=== PATIENT | male | born 1940 | race Hispanic/Latino ===

== ENCOUNTER 2018-09-05 11:23 | Emergency (ER) | payer SELFPAY ==
[2018-09-05 11:30] VITALS: RESP 18
[2018-09-05 11:31] VITALS: BMI 27.6
[2018-09-05] MEDS ORDERED: Lidocaine 5% Patch TD STA (12:14)
--- NOTE | 2018-09-05 12:31 | ED PDOC ---
HPI: General Adult Time Seen by Provider: 09/05/18 11:34 Chief Complaint (Nursing): Upper Extremity Problem/Injury Chief Complaint (Provider): Neck pain History Per: Patient, Family History/Exam Limitations: no limitations Additional Complaint(s): Pt c/o R arm pain X 2 days that now radiates up to R side of neck, worse with movement of R arm, has been taking Tylenol at home with good relief. Was working in garden day before symptoms started. Woke up this AM with more pain. Was evaluated at [facility], EKG showed "irregularly irregular" rhythm and was told he was bradycardic. Pt denies CP, SOB, palpitations. States he has always had an irregular rhythm. Past Medical History Reviewed: Nursing Documentation, Vital Signs Vital Signs: Last Vital Signs Temp 97.5 F L 09/05/18 11:30 Pulse 69 09/05/18 11:30 Resp 18 09/05/18 11:30 BP 148/83 09/05/18 11:30 Pulse Ox 97 09/05/18 11:30 Primary Care Provider: Non [facility] Provider, - Medical History PMH: CAD, Dementia (possible), Hyperlipidemia - Surgical History Surgical History: Coronary Stent - Family History Family History: States: Unknown Family Hx - Living Arrangements Living Arrangements: With Family - Social History Current smoker - smoking cessation education provided: No Alcohol: None - Home Medications Home Medications: Ambulatory Orders Medication Instructions Recorded Lidocaine 5% [Lidoderm] 1 ea TD DAILY PRN #10 patch 09/05/18 - Allergies Allergies/Adverse Reactions: Allergies Allergy/AdvReac Type Severity Reaction Status Date / Time oxycodone [From Percocet] AdvReac Intermediate NAUSEA Verified 09/05/18 11:48 Review of Systems Constitutional: Negative for: Fever, Chills Eyes: Negative for: Vision Change Cardiovascular: Negative for: Chest Pain Respiratory: Negative for: Cough, Shortness of Breath Gastrointestinal: Negative for: Abdominal Pain Musculoskeletal: Positive for: Neck Pain, Arm Pain. Negative for: Shoulder Pain Skin: Negative for: Rash, Lesions Neurological: Negative for: Headache, Dizziness Physical Exam - Reviewed Nursing Documentation Reviewed: Yes Vital Signs Reviewed: Yes - Physical Exam Appears: Positive for: Well, No Acute Distress Head Exam: Positive for: ATRAUMATIC, NORMAL INSPECTION Skin: Positive for: Normal Color, Warm, Dry Eye Exam: Positive for: Normal appearance, EOMI, PERRL Neck: Positive for: Normal, Supple, Pain On Movement Of Neck (R neck). Negative for: Painless ROM, Decreased ROM, Limited ROM Cardiovascular/Chest: Positive for: Irregularly Irregular. Negative for: Bradycardia Respiratory: Positive for: Normal Breath Sounds Gastrointestinal/Abdominal: Positive for: Normal Exam Extremity: Positive for: Other (Decreased ROM R shoulder secondary to pain). Negative for: Normal ROM, Tenderness, Deformity, Swelling Neurological/Psych: Positive for: Awake, Alert, Oriented, increment manager II-XII. Negative for: Facial Droop - Laboratory Results Result Diagrams: 09/05/18 12:20 09/05/18 12:20 - ECG Interpretation Of ECG: SR @ 85, bigeminy. O2 Sat by Pulse Oximetry: 97 Pulse Ox Interpretation: Normal - Radiology X-Ray: Interpreted by Ia X-Ray Interpretation: No Acute Disease Medical Decision Making Medical Decision Makin yo male with R sided neck/arm pain and EKG changes (old vs. new). - labs - EKG - CXR - Lidocaine patch Pt given copy of labs, EKG and imaging. Disposition - Clinical Impression Clinical Impression: Neck pain, Bigeminal rhythm - Disposition Disposition: Routine/Home Disposition Time: 15:09 Condition: IMPROVED Additional Instructions: FOLLOW-UP WITH PMD WITHIN 2 DAYS FOR REEVALUATION. Prescriptions: Lidocaine 5% [Lidoderm] 1 ea TD DAILY PRN #10 patch PRN Reason: Pain, Moderate (4-7) Instructions: Arrhythmias, Neck Pain Forms: [email or web address] ([place])
[2018-09-05 12:51] LABS: BASO % 0.6 % (0.0-2.0); EOS # 0.4 K/uL (0.0-0.7); EOS % 7.2 % (0.0-4.0); HEMOGLOBIN 13.9 g/dL (12.0-18.0); LYMPH # 0.7 K/uL (1.0-4.3); LYMPH % 11.6 % (20.0-40.0); MEAN CELL VOLUME 96.6 fl (80.0-94.0); MEAN CORPUSCULAR HEMOGLOBIN 31.9 pg (27.0-31.0); MEAN PLATELET VOLUME 11.1 fl (7.2-11.7); MONO # 0.5 K/uL (0.0-0.8); MONO % 9.3 % (0.0-10.0); NEUT # 4.2 K/uL (1.8-7.0); NEUT % 71.3 % (50.0-75.0); NRBC % 0.1 % (0.0-0.0); RBC 4.35 Mil/uL (4.40-5.90); RED CELL DISTRIBUTION WIDTH 13.2 % (11.5-14.5); WHITE BLOOD COUNT 5.9 K/uL (4.8-10.8)
[2018-09-05 12:57] LABS: PROTHROMBIN TIME 11.9 Seconds (9.8-13.1)
[2018-09-05 12:59] LABS: PARTIAL THROMBOPLASTIN TIME 34.5 Seconds (25.6-37.1)
[2018-09-05 13:01] LABS: ALBUMIN 4.3 g/dL (3.5-5.0); BLOOD UREA NITROGEN 14 mg/dl (9-20); CALCIUM 9.2 mg/dL (8.4-10.2); GFR NON-AFRICAN AMERICAN > 60
[2018-09-05 13:02] LABS: ALB/GLOB RATIO 1.5 (1.0-2.1); ALT/SGPT 35 U/L (21-72); AST/SGOT 35 U/L (17-59)
--- NOTE | 2018-09-05 13:35 | CT ---
Date of service: 09/05/2018 PROCEDURE: CT Cervical Spine without contrast HISTORY: R sided neck pain COMPARISON: None available. TECHNIQUE: Axial computed tomography images were obtained of the cervical spine without the use of intravenous contrast. Coronal and sagittal reformatted images were created and reviewed. Radiation dose: Total exam DLP = 397.57 mGy-cm. This CT exam was performed using one or more of the following dose reduction techniques: Automated exposure control, adjustment of the mA and/or kV according to patient size, and/or use of iterative reconstruction technique. FINDINGS: VERTEBRAE: No fracture clearly identified. Minimal degenerative spondylolisthesis with C3 marginally anterior to C4. Multilevel facet joint degenerative arthropathy is identified diffusely. Gross degenerative disc disease appreciated C 4 5 C5-6 and C6-7 where there is marked disc height loss. Vacuum disc changes are prominent at C5-6 and minimal at C4-5. The C1-2 articulation is intact though degenerated with craniocervical junction unremarkable. DISCS/SPINAL CANAL/NEURAL FORAMINA: Gross facet and uncovertebral joint arthropathy at C3-4 causes moderate right and borderline left neural foraminal stenoses on degenerative basis. Moderate bilateral degenerative neural foraminal stenosis identified at C4-5 and are severe at C5-6 toward the right with none identified at the left. Mild right C6-7 neural foraminal stenosis is appreciated. Discs heights are grossly preserved. PARASPINAL SOFT TISSUES: Unremarkable. OTHER FINDINGS: None. IMPRESSION: No acute fracture or traumatic spondylolisthesis. Grade 1 spondylolisthesis at C3-4 is degenerative. Multilevel variable neural foraminal stenoses on degenerative basis as discussed above. No significant central canal stenosis throughout.
[2018-09-05 16:10] VITALS: BP 115/66; PULSE 66; TEMP 97.6
--- NOTE | 2018-09-05 18:05 | RAD ---
Date of service: 09/05/2018 HISTORY: Arm pain COMPARISON: No prior. TECHNIQUE: Chest PA and lateral views FINDINGS: LUNGS: Mild elevation of the left hemidiaphragm noted. Etiology indeterminate. No acute infiltrate bilaterally. PLEURA: Trace of pleural effusion is in question though this is not definite. No right pleural effusion. No pneumothorax apparent. CARDIOVASCULAR: Calcific atherosclerotic changes are seen related to the thoracic aorta. Normal cardiac size. Prosthetic cardiac valve identified. No pulmonary vascular congestion. OSSEOUS STRUCTURES: Median sternotomy identified. VISUALIZED UPPER ABDOMEN: Normal. OTHER FINDINGS: None. IMPRESSION: No infiltrate or pulmonary vascular congestion. Limited elevation left hemidiaphragm is minimal and of uncertain origin. Trace left pleural effusion not excluded.
--- NOTE | 2018-09-06 22:59 | CARD ---
APPROVED REPORT Date of service: 09/05/2018 EKG Measurement Heart [id number] <Conclusion> Sinus rhythm with frequent premature ventricular complexes in a pattern of bigeminy Non specific T-wave changes Abnormal ECG
[2018-09-07 15:14] VITALS: O2SAT 97
== END 2018-09-05 16:01 | disposition home or self-care (01) ==
LOC: H.ER 11:23
DX: M54.2 Cervicalgia (principal); R00.8 Other abnormalities of heart beat; Z95.5 Presence of coronary angioplasty implant and graft